=== PATIENT | male | born 1995 | race Caucasian/White ===

== ENCOUNTER 2017-08-11 04:57 | Emergency (ER) | payer BC ==
[2017-08-11] MEDS ORDERED: IBUPROFEN 800 MG TABLET PO STA (06:12)
[2017-08-11 06:31] VITALS: BP 131/76
--- NOTE | 2017-08-11 06:34 | XRAY Preliminary Report ---
Exam: XR CHEST 2 VIEW X-RAY IMPRESSION: 1. No acute abnormality seen in the chest. [facility] SITE ID: [id number]
--- NOTE | 2017-08-11 06:35 | XRAY Report ---
EXAM: CHEST RADIOGRAPHY EXAM DATE: 08/11/2017 06:25 AM. CLINICAL HISTORY: Cough with dyspnea; Crackles on left. COMPARISON: None. TECHNIQUE: 2 views. FINDINGS: Lungs/Pleura: No alveolar consolidation or pleural effusion seen. No pneumothorax. Mediastinum: Heart and mediastinal contours are unremarkable. Other: None. IMPRESSION: 1. No acute abnormality seen in the chest. [facility] Referring Provider Line: [phone] SITE ID: [id number]
--- NOTE | 2017-08-11 07:16 | ED Physician Documentation ---
PD HPI URI - Stated complaint Stated Complaint: COUGH - Chief complaint Chief Complaint: Heent - History obtained from History obtained from: Patient - History of Present Illness Timing - onset: How many weeks ago (1) Timing details: Gradual onset (Worse over the past 2 days.) Associated symptoms: Fever, Ear pain (Left ear.), Nasal congestion, Sore throat , Dry cough Contributing factors: Sick contact (Girlfriend has been sick with similar symptoms.) - Treatment prior to arrival Treatment prior to arrival: Tylenol and TheraFlu without relief. - Additional information Additional information: The patient is a 22-year-old male who presents with cough and fever of one weeks duration. His cough has become worse during the past 2 days. He also reports stuffy nose, left earache, and mildly sore throat. He denies headache or vomiting. He had one episode of diarrhea today. Vaccinations are up-to- date. He does not smoke cigarettes. Review of Systems Constitutional: reports: Fever, Myalgias Eyes: denies: Discharge Ears: reports: Ear pain (left ear) Nose: reports: Congestion Throat: reports: Sore throat Cardiac: denies: Chest pain / pressure Respiratory: reports: Cough. denies: Dyspnea GI: reports: Diarrhea (once). denies: Abdominal Pain, Nausea, Vomiting : denies: Dysuria Skin: denies: Rash Musculoskeletal: denies: Neck pain Neurologic: denies: Headache PD PAST MEDICAL HISTORY - Past Medical History Cardiovascular: None Respiratory: None Neuro: None Endocrine/Autoimmune: None - Past Surgical History Past Surgical History: Yes HEENT: Tonsil/Adenoidectomy - Present Medications Home Medications: Ambulatory Orders Medication Instructions Recorded Confirmed Benzonatate [Tessalon Perle] 100 mg PO BID #10 capsule 08/11/17 - Allergies Allergies/Adverse Reactions: Allergies Allergy/AdvReac Type Severity Reaction Status Date / Time Sulfa (Sulfonamide Allergy Unknown Verified 08/11/17 05:15 Antibiotics) - Social History Does the pt smoke?: No Smoking Status: Never smoker Does the pt drink ETOH?: No Does the pt have substance abuse?: No - Immunizations Immunizations are current?: No Immunizations: TDAP >10years/unknown - POLST Patient has POLST: No PD ED PE NORMAL - Vitals Vital signs reviewed: Yes (Borderline systolic hypertension initially.) - General General: Alert and oriented X 3, Well developed/nourished - HEENT HEENT: Atraumatic, EOMI, Pharynx benign, Other (Left tympanic membrane is erythematous with obscured landmarks. Right tympanic membranes clear.) - Neck Neck: Supple, no meningeal sign, No adenopathy - Cardiac Cardiac: RRR, No murmur - Respiratory Respiratory: No respiratory distress, Other (Squeaking in the left chest on auscultation.) - Abdomen Abdomen: Soft, Non tender - Back Back: No CVA TTP - Derm Derm: No rash - Extremities Extremities: No edema, No calf tenderness / cord - Neuro Neuro: Alert and oriented X 3, No motor deficit, No sensory deficit Results - Vitals Vitals: Oxygen O2 Source Room air - Labs Labs: Laboratory Tests 08/11/17 06:19 Influenza A (Rapid) Negative Influenza B (Rapid) Negative Influenza Types A,B Ag - - Rads (name of study) 2-view CXR Radiology: Prelim report reviewed, EMP read contemporaneously, See rad report ( No acute abnormality seen in the chest.) PD MEDICAL DECISION MAKING - ED course Complexity details: reviewed results, re-evaluated patient, considered differential, d/w patient ED course: The patient's presentation is most consistent with viral respiratory infection. Influenza swab is negative. His presentation does not suggest pneumonia. Chest x-ray reveals no acute cardiopulmonary abnormality. Treatment in the emergency department included administration of ibuprofen 800 mg orally. He is being discharged with prescription for Tessalon Perles. 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 Departure - Departure Disposition: 01 Home, Self Care Clinical Impression: Viral URI with cough Condition: Stable Instructions: ED Upper Resp Infec No Abx Tx Follow-Up: [facility] [Provider Group] Prescriptions: Benzonatate [Tessalon Perle] 100 mg PO BID #10 capsule Comments: Use Tylenol or ibuprofen as needed for fever or discomfort. You can use Tessalon as prescribed if needed for cough. Follow up with primary physician within 2 weeks. Call to schedule an appointment. Return to the emergency department if you develop increasing difficulty breathing, or otherwise worsening symptoms. Forms: Activity restrictions Discharge Date/Time: 08/11/17 08:04
== END 2017-08-11 08:04 | disposition home or self-care (01) ==
LOC: ED 04:57
DX: J06.9 Acute upper respiratory infection, unspecified (principal); B34.9 Viral infection, unspecified; R05 Cough
CPT/HCPCS: 71046; 87275; 87276; 99283; A9270